=== PATIENT | female | born 1965 | race Caucasian/White ===

== ENCOUNTER → 2020-09-25 15:24 | Outpatient (BNVA) | payer BC, SELFPAY | PROVIDERS: PCP Internal Medicine; Referring Provider Internal Medicine; Visit Provider Internal Medicine Endocrinology, Diabetes & Metabolism | DX: Z13.89 Encounter for screening for other disorder (principal) ==

== ENCOUNTER 2020-11-13 14:28 | Outpatient (REF) | payer OTHER, SELFPAY ==
[2020-11-13 15:00] LABS: COVID-19 Test Negative (Negative); IDNOW Serial# 55D5AD1C
== END 2020-11-13 14:29 | disposition home or self-care (01) ==
LOC: HO.LAB 14:28
PROVIDERS: PCP Internal Medicine; Visit Provider Internal Medicine
DX: Z20.828 Contact with and (suspected) exposure to other viral communicable diseases (principal)
CPT/HCPCS: 87635; C9803

== ENCOUNTER 2020-11-28 07:21 | Outpatient (REF) | payer OTHER, SELFPAY ==
[2020-11-28 07:46] LABS: COVID-19 Test Negative (Negative); IDNOW Serial# 55D5AD1C
== END 2020-11-28 07:22 | disposition home or self-care (01) ==
LOC: HO.EMPCOV 07:21
PROVIDERS: Visit Provider Internal Medicine
DX: Z20.828 Contact with and (suspected) exposure to other viral communicable diseases (principal)
CPT/HCPCS: 36415; 87635; C9803

== ENCOUNTER 2021-02-28 12:13 | Outpatient (REF) | payer OTHER, SELFPAY ==
[2021-02-28 12:50] LABS: COVID-19 Test Negative (Negative)
== END 2021-02-28 12:14 | disposition home or self-care (01) ==
LOC: HO.EMPCOV 12:13
PROVIDERS: Visit Provider Internal Medicine
DX: Z20.822 Contact with and (suspected) exposure to COVID-19 (principal)
CPT/HCPCS: 36415; 87635; C9803

== ENCOUNTER 2021-05-08 09:31 | Outpatient (REF) | payer BC, SELFPAY ==
[2021-05-08 11:58] LABS: Alanine Aminotransferase 33 U/L (0-31); Albumin Level 4.4 g/dL (3.5-5.0); Alkaline Phosphatase 69 U/L (39-117); Anion Gap 12 (12-20); Aspartate Amino Transferase 23 U/L (5-31); Blood Urea Nitrogen 11 mg/dL (9-16); Calcium 10.2 mg/dL (8.4-10.2); Carbon Dioxide 27 mmol/L (22-29); Chloride 106 mmol/L (96-108); Cholesterol 161 mg/dL; Estimated Glomerular Filt Rate > 60; Glucose Fasting 82 mg/dL (60-99); HDL Cholesterol 50 mg/dL; LDL Cholesterol Calculated 73 mg/dl; Potassium 4.4 mmol/L (3.3-5.1); Sodium 141 mmol/L (135-145); Total Protein 7.3 g/dL (6.5-8.0); Triglycerides 194 mg/dL
[2021-05-08 12:22] LABS: Free T4 (Free Thyroxine) 0.88 ng/dL (0.71-1.85); Thyroid Stimulating Hormone 1.66 uIU/mL (0.32-4.0); Vitamin D 25-OH Total 43.4 ng/mL (>30)
[2021-05-09 06:31] LABS: LDL Cholesterol Direct 87 mg/dL (<100)
== END 2021-05-08 09:32 | disposition home or self-care (01) ==
LOC: HO.HMGCLDS 09:31
PROVIDERS: PCP Internal Medicine; Visit Provider Internal Medicine Endocrinology, Diabetes & Metabolism
DX: I10 Essential (primary) hypertension (principal); E78.5 Hyperlipidemia, unspecified; E04.2 Nontoxic multinodular goiter; E55.9 Vitamin D deficiency, unspecified
CPT/HCPCS: 36415; 80053; 80061; 82306; 83721; 84439; 84443

== ENCOUNTER 2021-05-09 11:11 | Outpatient (REF) | payer BC, SELFPAY ==
--- NOTE | ~2021-05-09 | US_ITS ---
EXAMINATION: US THYROID CLINICAL INFORMATION: Nontoxic multinodular goiter. COMPARISON: Ultrasound soft tissue head/neck thyroid dated 12/15/2019 and 10/28/2016. TECHNIQUE: Linear transducer grayscale and color Doppler examination with attention to the region of the thyroid. FINDINGS: SIZE: Measurements of the thyroid lobes and nodules are given in sagittal, anteroposterior and transverse dimensions respectively. Right Thyroid Lobe: 5.5 x 1.7 x 1.8 cm, volume 8.6 mL. Previously 4.9 x 1.8 x 2.2 cm, volume 9.6 mL. Parenchyma: The gland echotexture is homogeneous. Thyroid vascularity is increased. Left Thyroid Lobe: 5.6 x 2.0 x 1.9 cm, volume 11.0 mL. Previously 4.5 x 2.2 x 1.9 cm, volume 9.6 mL. Parenchyma: The gland echotexture is homogeneous. Thyroid vascularity is increased. Isthmus: 0.4 cm in maximum AP dimension. Previously 0.2 cm. Estimated total number of nodules greater than or equal to 1 cm: 2. Manager Asset nodules are described as follows: 1. Location: Right superior. Size: 0.84 x 0.8 x 1.1 cm, volume 0.39 mL. Previously: 0.9 x 0.9 x 1.1 cm, volume 0.47 mL. Nodule characteristics: Composition: Solid (2). Echogenicity: Hyperechoic (1). Shape: Not taller than wide (0). Margins: Smooth (0). Echogenic Foci: None (0). ACR TI-RADS total points: 3 ACR TI-RADS category: 3 Significant change in size (>/= 20% in 2 dimensions and minimal increase of 2 mm or 50% or greater increase in volume): No Change in features: No Change in ACR TI-RADS risk category: No 2. Location: Right mid. Size: 0.65 x 0.32 x 0.51 cm, volume 0.06 mL. Previously: 0.51 x 0.29 x 0.56 cm, volume 0.03 mL. Nodule characteristics: Composition: Spongiform (0). Echogenicity: Anechoic (0). Shape: Not taller than wide (0). Margins: Smooth (0). Echogenic Foci: None (0). ACR TI-RADS total points: 0 ACR TI-RADS category: 1 Significant change in size (>/= 20% in 2 dimensions and minimal increase of 2 mm or 50% or greater increase in volume): Yes Change in features: No Change in ACR TI-RADS risk category: No 3. Location: Left mid. Size: 0.31 x 0.3 x 0.32 cm, volume 0.02 mL. Previously: Not documented on the prior study. Nodule characteristics: Composition: Cystic(0). ACR TI-RADS total points: 0 ACR TI-RADS category: 1 4. Location: Left inferior. Size: 1.1 x 0.6 x 0.88 cm, volume 0.3 mL. Previously: 0.8 x 0.52 x 0.95 cm, volume 0.21 mL. Nodule characteristics: Composition: Solid (2). Echogenicity: Isoechoic (1). Shape: Not taller than wide (0). Margins: Smooth (0). Echogenic Foci: None (0). ACR TI-RADS total points: 3 ACR TI-RADS category: 3 Significant change in size (>/= 20% in 2 dimensions and minimal increase of 2 mm or 50% or greater increase in volume): No Change in features: No Change in ACR TI-RADS risk category: No NODES: No lymphadenopathy is seen in the tissue surrounding the thyroid gland. US/US thyroid IMPRESSION: Slightly enlarged thyroid gland with bilateral thyroid nodules. Slight interval increase in size in the nodule in the right lobe otherwise no appreciable change from previous exam November 2019.. ACR TI-RADS RECOMMENDATION REFERENCE: Ultrasound-guided fine-needle aspiration, followup ultrasound, no further follow up. * TR1 (0 point) and TR 2 (2 points): No FNA or follow up * TR3 (3 points): FNA if more than or equal to 2.5 cm in maximum dimension, followup ultrasound in 1, 3 and 5 years if 1.5 to 2.4 cm in maximum dimension. * TR4 (4-6 points): FNA if more than or equal to 1.5 cm in maximum dimension, followup ultrasound in 1, 2, 3 and 5 years if 1 to 1.4 cm in maximum dimension. * TR5 (more than or equal to 7 points): FNA if more than or equal to 1 cm in maximum dimension, followup ultrasound every year for 5 years if 0.5 to 0.9 cm in maximum dimension. * TR3, TR4 or TR5 nodules that are below the size threshold for follow up receive no follow up.
== END 2021-05-09 11:12 | disposition home or self-care (01) ==
LOC: HO.HMGCX 11:11
PROVIDERS: PCP Internal Medicine; Visit Provider Internal Medicine Endocrinology, Diabetes & Metabolism
DX: E04.2 Nontoxic multinodular goiter (principal)
CPT/HCPCS: 76536

== ENCOUNTER → 2021-05-10 08:12 | Outpatient (BNVA) | payer BC, SELFPAY | PROVIDERS: PCP Internal Medicine; Visit Provider Internal Medicine Endocrinology, Diabetes & Metabolism ==

== ENCOUNTER 2022-07-07 08:20 | Outpatient (REF) | payer BC, SELFPAY ==
[2022-07-07 11:55] LABS: Estimated Average Glucose 100 mg/dL; Hemoglobin A1c % 5.1 %
[2022-07-07 12:16] LABS: Alanine Aminotransferase 29 U/L (0-31); Albumin Level 4.3 g/dL (3.5-5.0); Alkaline Phosphatase 65 U/L (39-117); Anion Gap 14 (12-20); Aspartate Amino Transferase 19 U/L (5-31); Bilirubin Total 0.5 mg/dL (0.0-1.0); Blood Urea Nitrogen 11 mg/dL (9-16); Calcium 9.6 mg/dL (8.4-10.2); Carbon Dioxide 24 mmol/L (22-29); Chloride 107 mmol/L (96-108); Cholesterol 189 mg/dL; Estimated Glomerular Filt Rate > 60; Glucose Random 99 mg/dL (60-115); HDL Cholesterol 52 mg/dL; LDL Cholesterol Calculated 113 mg/dl; Potassium 4.2 mmol/L (3.3-5.1); Sodium 141 mmol/L (135-145); Total Protein 7.3 g/dL (6.5-8.0); Triglycerides 122 mg/dL
[2022-07-07 12:22] LABS: Free T4 (Free Thyroxine) 0.91 ng/dL (0.71-1.85); Thyroid Stimulating Hormone 3.21 uIU/mL (0.32-4.0); Vitamin D 25-OH Total 32.8 ng/mL (>30)
[2022-07-09 07:52] LABS: LDL Cholesterol Direct 115 mg/dL (<100)
== END 2022-07-07 08:21 | disposition home or self-care (01) ==
LOC: HO.HMGCLDS 08:20
PROVIDERS: PCP Internal Medicine; Visit Provider Internal Medicine
DX: I10 Essential (primary) hypertension (principal); E55.9 Vitamin D deficiency, unspecified; E06.3 Autoimmune thyroiditis; E78.5 Hyperlipidemia, unspecified
CPT/HCPCS: 36415; 80053; 80061; 82306; 83036; 83721; 84439; 84443

== ENCOUNTER 2022-12-20 19:52 | Emergency (ER) | payer BC, SELFPAY ==
--- NOTE | ~2022-12-20 | XR_ITS ---
EXAMINATION: XR chest 2V CLINICAL INFORMATION: Reason for Exam chest pain COMPARISON: None TECHNIQUE: 2 views of the chest FINDINGS: Clear lungs. No pneumothorax or pleural effusion. Normal cardiomediastinal silhouette. XR/XR chest 2V IMPRESSION: * Clear lungs.
[2022-12-20 19:53] VITALS: BP 187/104; PULSE 82; RESP 18; TEMP 36.9; O2SAT 97; BMI 29.9
--- NOTE | 2022-12-20 19:55 | ED_ITS ---
HPI - General Adult General Chief complaint: General Medical <AILYN Huggins - Last Filed: 12/20/22 19:57> Stated complaint: High BP <AILYN Huggins - Last Filed: 12/20/22 19:57> Time Seen by Provider: 12/20/22 20:04 <AILYN Huggins - Last Filed: 12/20/22 19:57> Source: patient <Mickey Deutsch MD - Last Filed: 12/26/22 17:43> Mode of arrival: ambulatory <Mickey Deutsch MD - Last Filed: 12/26/22 17:43> Limitations: no limitations <Mickey Deutsch MD - Last Filed: 12/26/22 17:43> History of Present Illness HPI narrative: Patient is a 57 year old female with history of hypertension on lisinopril 20 mg daily noticed to have high blood pressure for last few days today on arrival blood pressure was 179/108 with pulse rate of 69 repeat blood pressure was 149/80. Patient denies any stress no change in the diet no NSAID use no chest pain no headache no palpitation no anxiety or depression <Mickey Deutsch MD - Last Filed: 12/26/22 17:43> Related Data Home medications: Previous Rx's Medication Instructions Recorded cholecalciferol (vitamin D3) 50 50 mcg PO DAILY 30 days #30 caps 05/10/21 mcg (2,000 unit) capsule atorvastatin 20 mg tablet 20 mg PO DAILY 30 days #30 tabs 09/10/22 amlodipine 5 mg tablet 5 mg PO DAILY 30 days #30 tabs 12/22/22 hydrochlorothiazide 25 mg tablet 25 mg PO QAM #30 tabs 12/22/22 lisinopril 20 mg tablet 20 mg PO DAILY 30 days #30 caps 12/22/22 <AILYN Huggins - Last Filed: 12/20/22 19:57> Allergies/adverse reactions: Allergies Allergy/AdvReac Type Severity Reaction Status Date / Time No Known Allergies Allergy Verified 12/20/22 19:57 [No Known Allergies*] <AILYN Huggins - Last Filed: 12/20/22 19:57> Review of Systems Review of Systems: Yes all other systems are reviewed and are negative <Mickey Deutsch MD - Last Filed: 12/26/22 17:43> [facility] [place] Past Medical History Medical History: Medical History CKD (chronic kidney disease) stage 3, GFR 30-59 ml/min Dyslipidemia Julio's disease Hypertension Non-toxic multinodular goiter Vitamin D deficiency <AILYN Huggins - Last Filed: 12/20/22 19:57> Surgical History: Surgical History History of root canal procedure <AILYN Huggins - Last Filed: 12/20/22 19:57> Family History Family History: Family History Father COPD (chronic obstructive pulmonary disease) HTN (hypertension) Elevated cholesterol Mother Colon cancer HTN (hypertension) Elevated lipids Maternal Grandfather Unknown family medical history Maternal Grandmother No problems noted. Paternal Grandfather No problems noted. Paternal Grandmother Oral cancer Smoker Unknown family medical history Maternal Aunt No problems noted. Sister Breast cancer Sister Breast cancer Brother No problems noted. Son No problems noted. Son No problems noted. Daughter No problems noted. Brother No problems noted. Sister No problems noted. <AILYN Huggins - Last Filed: 12/20/22 19:57> Social History Social History: Social History Patient Tobacco Use Status: Never used Tobacco <AILYN Huggins - Last Filed: 12/20/22 19:57> Physical Exam ED Vital Signs: BMI result Body Mass Index 29.9 <AILYN Huggins - Last Filed: 12/20/22 19:57> BMI result Body Mass Index 29.9 <Mickey Deutsch MD - Last Filed: 12/26/22 17:43> Appearance: Alert. Oriented X3. No acute distress. Eyes: No pallor/icterus ENT: Pharynx normal. Oral Mucosa moist Neck: Normal inspection. Neck supple. CVS: Normal heart rate and rhythm. Pulses normal. Respiratory: No respiratory distress. Equal air entry bilateral, no wheezing/rales/rhonchi Abdomen: Soft and nontender. Bowel sounds are present, no mass palpable, no CVA tenderness Skin: Skin warm and dry. Normal skin color. Normal skin turgor. Extremities: No lower extremity edema. No calf tenderness Neuro: Oriented X 3. No motor deficit. No sensory deficit.No cerebellar signs , cranial nerves II-XII intact <Mickey Deutsch MD - Last Filed: 12/26/22 17:43> Course Course Course Narrative: RME performed by Sandrita Rios PA-C. Patient is a 57 year old female presenting to the emergency department with elevated blood pressure. Patient states that she has a history of HTN for which she takes medication but it is still elevated even after her medication today. Labs ordered. Patient placed back in waiting room pending results and room availability. <AILYN Huggins - Last Filed: 12/20/22 19:57> Medical Decision Making Medical Decision Making MDM Narrative: Patient with mild hypertensive blood pressure increased to 153/91 during stay in the ER. Will advise patient to follow with PCP add hydrochlorothiazide 25 mg daily region patient does not have any end-organ damage at this time, labs are stable <Mickey Deutsch MD - Last Filed: 12/26/22 17:43> Lab Data [facility] Lab Attestation statement: I reviewed the patient's lab results. <Mickey Deutsch MD - Last Filed: 12/26/22 17:43> Result Diagrams: 12/20/22 20:28 12/20/22 20:28 <AILYN Huggins - Last Filed: 12/20/22 19:57> Labs: Lab Results 12/20/22 12/20/22 Range/Units 20:28 20:28 WBC 5.4 (4.8-10.8) X10*3/uL RBC 4.46 (4.20-5.50) X10*6/uL Hgb 12.7 (12.0-16.0) g/dl Hct 39.2 (37.0-47.0) % MCV 87.9 (80.0-98.0) fL MCH 28.5 (27.0-33.0) pg MCHC 32.4 (31.0-35.0) g/dl RDW 12.7 (11.0-16.0) % Plt Count 199 (160-400) X10*3/uL MPV 10.0 (9.4-12.3) fL Immature Gran % (Auto) 0.4 (0.0-0.4) % Neut % (Auto) 62.1 (45-73) % Lymph % (Auto) 25.6 (20-40) % Hood % (Auto) 9.3 (2-11) % Eos % (Auto) 2.0 (0-4) % Baso % (Auto) 0.6 (0-2) % Lymph # (Auto) 1.4 (1.2-4.9) X10*3/uL Hood # (Auto) 0.5 (0.1-1.2) X10*3/uL Eos # (Auto) 0.1 (0.0-0.4) X10*3/uL Baso # (Auto) 0.0 (0.0-0.2) X10*3/uL Abs Immat Gran (auto) 0.02 (0.00-0.03) X10*3/uL Absolute Neuts (auto) 3.4 (2.0-8.3) x10*3/uL Absolute Nucleated RBC 0.000 (0.0-0.012) X10*3/uL Nucleated RBC % (auto) 0.0 (0.0-0.2) /100WBC Sodium 142 (135-145) mmol/L Potassium 3.9 (3.3-5.1) mmol/L Chloride 108 (96-108) mmol/L Carbon Dioxide 28 (22-29) mmol/L Anion Gap 10 L (12-20) BUN 20 H (9-16) mg/dL Creatinine 0.99 (0.5-1.4) mg/dL Estim Creat Clear Calc 79.6 Estimated GFR 58 Random Glucose 85 (60-115) mg/dL Calcium 9.5 (8.4-10.2) mg/dL Magnesium 1.9 (1.6-2.6) mg/dL Total Bilirubin 0.4 (0.0-1.0) mg/dL AST 16 (5-31) U/L ALT 20 (0-31) U/L Alkaline Phosphatase 68 (39-117) U/L Total Protein 6.9 (6.5-8.0) g/dL Albumin 4.2 (3.5-5.0) g/dL <AILYN Huggins - Last Filed: 12/20/22 19:57> Lab Results 12/20/22 12/20/22 Range/Units 20:28 20:28 WBC 5.4 (4.8-10.8) X10*3/uL RBC 4.46 (4.20-5.50) X10*6/uL Hgb 12.7 (12.0-16.0) g/dl Hct 39.2 (37.0-47.0) % MCV 87.9 (80.0-98.0) fL MCH 28.5 (27.0-33.0) pg MCHC 32.4 (31.0-35.0) g/dl RDW 12.7 (11.0-16.0) % Plt Count 199 (160-400) X10*3/uL MPV 10.0 (9.4-12.3) fL Immature Gran % (Auto) 0.4 (0.0-0.4) % Neut % (Auto) 62.1 (45-73) % Lymph % (Auto) 25.6 (20-40) % Hood % (Auto) 9.3 (2-11) % Eos % (Auto) 2.0 (0-4) % Baso % (Auto) 0.6 (0-2) % Lymph # (Auto) 1.4 (1.2-4.9) X10*3/uL Hood # (Auto) 0.5 (0.1-1.2) X10*3/uL Eos # (Auto) 0.1 (0.0-0.4) X10*3/uL Baso # (Auto) 0.0 (0.0-0.2) X10*3/uL Abs Immat Gran (auto) 0.02 (0.00-0.03) X10*3/uL Absolute Neuts (auto) 3.4 (2.0-8.3) x10*3/uL Absolute Nucleated RBC 0.000 (0.0-0.012) X10*3/uL Nucleated RBC % (auto) 0.0 (0.0-0.2) /100WBC Sodium 142 (135-145) mmol/L Potassium 3.9 (3.3-5.1) mmol/L Chloride 108 (96-108) mmol/L Carbon Dioxide 28 (22-29) mmol/L Anion Gap 10 L (12-20) BUN 20 H (9-16) mg/dL Creatinine 0.99 (0.5-1.4) mg/dL Estim Creat Clear Calc 79.6 Estimated GFR 58 Random Glucose 85 (60-115) mg/dL Calcium 9.5 (8.4-10.2) mg/dL Magnesium 1.9 (1.6-2.6) mg/dL Total Bilirubin 0.4 (0.0-1.0) mg/dL AST 16 (5-31) U/L ALT 20 (0-31) U/L Alkaline Phosphatase 68 (39-117) U/L Total Protein 6.9 (6.5-8.0) g/dL Albumin 4.2 (3.5-5.0) g/dL <Mickey Deutsch MD - Last Filed: 12/26/22 17:43> Independent Interpretation I performed an independent interpretation of an: EKG <Mickey Deutsch MD - Last Filed: 12/26/22 17:43> Interpretation: Normal sinus rhythm heart rate 70 beats per minute normal interval normal axis no acute ST-T changes impression normal EKG <Mickey Deutsch MD - Last Filed: 12/26/22 17:43> Discharge Plan Discharge Clinical Impression: Hypertension <AILYN Huggins - Last Filed: 12/20/22 19:57> Patient Disposition: Home, Self-Care <AILYN Huggins - Last Filed: 12/20/22 19:57> Instructions: Chronic Hypertension (ED) <AILYN Huggins - Last Filed: 12/20/22 19:57> Additional Instructions: Decrease salt intake Start taking hydrochlorothiazide 25 mg daily along with lisinopril and 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 Check blood pressure twice daily Blood pressure Should be less than 135/85 Report to the ER/PCP blood pressure higher than 160/100 <AILYN Huggins - Last Filed: 12/20/22 19:57> Prescriptions: No Action atorvastatin 20 mg tablet 20 mg PO DAILY 30 Days Qty: 30 4RF lisinopril 20 mg tablet 20 mg PO DAILY 30 Days Qty: 30 6RF hydrochlorothiazide 25 mg tablet 25 mg PO QAM Qty: 30 4RF amlodipine 5 mg tablet 5 mg PO DAILY 30 Days Qty: 30 6RF cholecalciferol (vitamin D3) 50 mcg (2,000 unit) capsule 50 mcg PO DAILY 30 Days Qty: 30 6RF <AILYN Huggins - Last Filed: 12/20/22 19:57> Interventions: ED Discharge Assessment Last Done: 12/20/22 21:54 <AILYN Huggins - Last Filed: 12/20/22 19:57> Discharge Date/Time: 12/20/22 21:55 <AILYN Huggins - Last Filed: 12/20/22 19:57>
--- NOTE | 2022-12-20 19:57 | ECG_ITS ---
Test Reason : htn Blood Pressure : / mmHG Vent. Rate : 070 BPM Atrial Rate : 070 BPM P-R Int : 162 ms QRS Dur : 088 ms QT Int : 434 ms P-R-T Axes : 042 009 032 degrees QTc Int : 468 ms Artifact in tracing Normal sinus rhythm Normal ECG No previous ECGs available Referred By: Sandrita Rios Electronically Signed By:BEAR DOW
[2022-12-20 19:58] VITALS: BP 179/108
--- NOTE | 2022-12-20 20:08 | PC.NURSE ---
pt resting on stretcher at this time, [facility] performing EKG and getting blood work done at this time
[2022-12-20 20:15] VITALS: BP 149/80; PULSE 69; RESP 16; O2SAT 98
[2022-12-20 20:33] LABS: MANUAL DIFF FLAG NO
[2022-12-20 20:38] LABS: Basophils Percent Auto 0.6 % (0-2); Eosinophils Absolute Auto 0.1 X10*3/uL (0.0-0.4); Hematocrit 39.2 % (37.0-47.0); Hemoglobin 12.7 g/dl (12.0-16.0); Imm Gran Abs Auto 0.02 X10*3/uL (0.00-0.03); Imm Gran Pct Auto 0.4 % (0.0-0.4); Lymphocytes Absolute Auto 1.4 X10*3/uL (1.2-4.9); Lymphocytes Percent Auto 25.6 % (20-40); Mean Corpuscular HGB Conc 32.4 g/dl (31.0-35.0); Mean Corpuscular Hemoglobin 28.5 pg (27.0-33.0); Mean Corpuscular Volume 87.9 fL (80.0-98.0); Monocytes Absolute Auto 0.5 X10*3/uL (0.1-1.2); Monocytes Percent Auto 9.3 % (2-11); Neutrophils Absolute Auto 3.4 x10*3/uL (2.0-8.3); Neutrophils Percent Auto 62.1 % (45-73); Platelet Count 199 X10*3/uL (160-400); Red Blood Count 4.46 X10*6/uL (4.20-5.50); Red Cell Distribution Width 12.7 % (11.0-16.0); White Blood Count 5.4 X10*3/uL (4.8-10.8)
[2022-12-20 20:49] LABS: Alanine Aminotransferase 20 U/L (0-31); Albumin Level 4.2 g/dL (3.5-5.0); Alkaline Phosphatase 68 U/L (39-117); Anion Gap 10 (12-20); Aspartate Amino Transferase 16 U/L (5-31); Bilirubin Total 0.4 mg/dL (0.0-1.0); Blood Urea Nitrogen 20 mg/dL (9-16); Calcium 9.5 mg/dL (8.4-10.2); Carbon Dioxide 28 mmol/L (22-29); Chloride 108 mmol/L (96-108); Creatinine Clr Calc Pharmacy 79.6; Estimated Glomerular Filt Rate 58; Glucose Random 85 mg/dL (60-115); Magnesium 1.9 mg/dL (1.6-2.6); Potassium 3.9 mmol/L (3.3-5.1); Sodium 142 mmol/L (135-145); Total Protein 6.9 g/dL (6.5-8.0)
[2022-12-20 21:26] VITALS: BP 153/91; PULSE 67; RESP 14; O2SAT 100
== END 2022-12-20 21:55 | disposition home or self-care (01) ==
PROVIDERS: Physician Assistant Medical; Emergency Provider Internal Medicine; PCP Internal Medicine
DX: I12.9 Hypertensive chronic kidney disease with stage 1 through stage 4 chronic kidney disease, or unspecified chronic kidney disease (principal); N18.9 Chronic kidney disease, unspecified; E78.5 Hyperlipidemia, unspecified; Z79.899 Other long term (current) drug therapy; Z79.02 Long term (current) use of antithrombotics/antiplatelets
CPT/HCPCS: 36415; 71046; 80053; 83735; 85025; 93005; 99283; 99284

== ENCOUNTER 2022-12-23 08:03 | Outpatient (REF) | payer BC, SELFPAY ==
[2022-12-23 12:15] LABS: Alanine Aminotransferase 20 U/L (0-31); Albumin Level 4.5 g/dL (3.5-5.0); Alkaline Phosphatase 67 U/L (39-117); Anion Gap 13 (12-20); Aspartate Amino Transferase 15 U/L (5-31); Bilirubin Total 0.7 mg/dL (0.0-1.0); Blood Urea Nitrogen 17 mg/dL (9-16); Calcium 10.6 mg/dL (8.4-10.2); Carbon Dioxide 27 mmol/L (22-29); Chloride 105 mmol/L (96-108); Cholesterol 174 mg/dL; Estimated Glomerular Filt Rate > 60; Glucose Random 94 mg/dL (60-115); HDL Cholesterol 51 mg/dL; LDL Cholesterol Calculated 102 mg/dl; Potassium 4.2 mmol/L (3.3-5.1); Sodium 141 mmol/L (135-145); Total Protein 7.5 g/dL (6.5-8.0); Triglycerides 106 mg/dL
[2022-12-23 12:38] LABS: Estimated Average Glucose 100 mg/dL; Hemoglobin A1C 178.1198 umol/L; Hemoglobin A1c % 5.1 %
[2022-12-23 12:39] LABS: Free T4 (Free Thyroxine) 0.98 ng/dL (0.71-1.85); Thyroid Stimulating Hormone 2.94 uIU/mL (0.32-4.0)
[2022-12-25 00:09] LABS: LDL Cholesterol Direct 94 mg/dL (<100)
[2022-12-27 12:49] LABS: Renin 1.06 ng/mL/h (0.25-5.82)
== END 2022-12-23 08:04 | disposition home or self-care (01) ==
LOC: HO.HMGCLDS 08:03
PROVIDERS: PCP Internal Medicine; Visit Provider Internal Medicine
DX: I10 Essential (primary) hypertension (principal); E04.2 Nontoxic multinodular goiter
CPT/HCPCS: 36415; 80053; 80061; 82088; 83036; 83721; 84244; 84439; 84443

== ENCOUNTER 2022-12-30 11:44 | Outpatient (REF) | payer BC, SELFPAY ==
--- NOTE | ~2022-12-30 | XR_ITS ---
EXAMINATION: XR LUMBOSACRAL SPINE CLINICAL INFORMATION: Low back pain. COMPARISON: None TECHNIQUE: Three views of the lumbosacral spine. FINDINGS: There is normal lumbar lordosis and spinal alignment. The vertebral bodies are intact. Mild to moderate degenerative disc disease is seen. There is no acute fracture. The soft tissues are unremarkable. XR/XR lumbar spine 2-3V IMPRESSION: Mild to moderate degenerative disc disease at L5-S1. No acute abnormality.
== END 2022-12-30 11:45 | disposition home or self-care (01) ==
LOC: HO.HMGCX 11:44
PROVIDERS: PCP Internal Medicine; Visit Provider Nurse Practitioner Family
DX: M54.50 Low back pain, unspecified (principal)
CPT/HCPCS: 72100

== ENCOUNTER 2024-02-02 09:17 | Outpatient (REF) | payer BC, SELFPAY ==
[2024-02-02 11:50] LABS: Estimated Average Glucose 91 mg/dL; Hemoglobin A1c % 4.8 % (<6.0)
[2024-02-02 12:21] LABS: Cholesterol 166 mg/dL (<200); HDL Cholesterol 50 mg/dL (>40); LDL Cholesterol Calculated 89 mg/dL (<100); Triglycerides 139 mg/dL (<150)
[2024-02-02 12:23] LABS: Thyroid Stimulating Hormone 1.82 uIU/mL (0.32-4.0)
[2024-02-03 12:39] LABS: LDL Cholesterol Direct 103 mg/dL (<100)
== END 2024-02-02 09:18 | disposition home or self-care (01) ==
LOC: HO.HMGCLDS 09:17
PROVIDERS: PCP Nurse Practitioner Primary Care; Visit Provider Internal Medicine
DX: E78.2 Mixed hyperlipidemia (principal); E88.819 Insulin resistance, unspecified; I10 Essential (primary) hypertension; E04.2 Nontoxic multinodular goiter
CPT/HCPCS: 36415; 80061; 83036; 83721; 84443

== ENCOUNTER 2024-02-19 17:46 | Emergency (ER) | payer BC, SELFPAY ==
--- NOTE | ~2024-02-19 | CT_ITS ---
EXAMINATION: CT ABDOMEN AND PELVIS WITH CONTRAST CLINICAL INFORMATION: Left lower quadrant COMPARISON: None available. TECHNIQUE: Multidetector volumetric images were obtained from the superior aspect of the liver through the pubic symphysis following administration 85 mL of Omnipaque 350 intravenous contrast. Sagittal and coronal reformatted images were obtained on the technologist's workstation. Oral contrast: No This CT examination was performed using dose optimization techniques as appropriate, variously including the following: *Automated exposure control *Adjustment of mA and/or kV according to patient size (this includes techniques or standardized protocols for targeted exams where dose is matched to indication/reason for exam; i.e. extremities or head) *Use of iterative reconstruction technique DLP: 739 mGy-cm FINDINGS: LUNG BASES: Bronchial wall thickening is seen., No consolidations, pleural effusions or lung masses. LIVER, GALLBLADDER, AND BILIARY TREE: The liver is enlarged measuring about 20 cm in cephalocaudad dimension with decreased attenuation suggesting hepatic steatosis. No focal hepatic lesion or biliary ductal dilatation is present. The gallbladder is unremarkable with no evidence of radiopaque gallstones, gallbladder wall thickening, or obvious pericholecystic inflammatory changes. PANCREAS: Unremarkable. SPLEEN: Mild splenomegaly measuring 12.6 cm in greatest transverse dimension. ADRENAL GLANDS: Unremarkable. KIDNEYS AND URETERS: The kidneys are normal in size, shape, and attenuation. No hydronephrosis, hydroureter, or calculi seen. No perinephric stranding. BLADDER: Unremarkable. GASTROINTESTINAL TRACT: Colonic diverticular changes are present with an area of acute diverticulitis in the distal sigmoid with marked inflammatory changes in the pericolonic fat. No free air or drainable fluid collections are seen. Small amount of free fluid is present in the cul-de-sac. There may be some adjacent inflammatory change in some small bowel. The remainder of the colon as well as the small bowel and appendix appear normal ABDOMINAL WALL: No significant hernia is appreciated. LYMPH NODES: Small shotty retroperitoneal lymph nodes are present without adenopathy. VASCULAR: Unremarkable. PELVIC VISCERA: The uterus and adnexa are unremarkable. OSSEOUS STRUCTURES: Mild degenerative changes are present in the spine. CT/CT abdomen pelvis w IV con IMPRESSION: 1. Acute uncomplicated sigmoid diverticulitis. No free air or drainable fluid collection. 2. Incidental note made of enlarged fatty liver, mild splenomegaly and degenerative changes in the spine. Fleischner guidelines were followed.
[2024-02-19 18:01] VITALS: BP 145/85; PULSE 109; RESP 18; TEMP 37.9; O2SAT 96; BMI 29.3
--- NOTE | 2024-02-19 18:01 | ED_ITS ---
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 Patient reports starting last night she has had intermittent crampy left lower abdominal pain She states the pain is waxing and waning in intensity but always there She denies any diarrhea, constipation. Denies any blood in the stool Denies any significant nausea or vomiting Patient denies any previous abdominal surgeries. She denies any history of colitis or diverticulitis Patient endorses low-grade fevers The patient felt as though she had a UTI so went to urgent care but reportedly had a negative urinalysis Related Data Previous Rx's Medication Instructions Recorded cholecalciferol (vitamin D3) 50 50 mcg PO DAILY 30 days #30 caps 05/10/21 mcg (2,000 unit) capsule amlodipine 5 mg tablet 5 mg PO DAILY 30 days #30 tabs 12/22/22 hydrochlorothiazide 25 mg tablet 25 mg PO QAM #30 tabs 12/22/22 lisinopril 20 mg tablet 20 mg PO DAILY 30 days #30 caps 12/22/22 cyclobenzaprine 10 mg tablet 10 mg PO TID PRN muscle spasm #14 12/30/22 tabs atorvastatin 20 mg tablet 20 mg PO DAILY 90 days #90 tabs 02/06/23 amoxicillin 875 mg-potassium 1 tab PO Q12H #14 tabs 02/19/24 clavulanate 125 mg tablet Allergies Allergy/AdvReac Type Severity Reaction Status Date / Time No Known Allergies Allergy Verified 12/20/22 19:57 [No Known Allergies*] Review of Systems Constitutional: Denies chills and Reports fever(s) Eyes: Denies blurry vision Denies sore throat Cardiovascular: Denies chest pain and Denies dyspnea Respiratory: Denies cough and Denies dyspnea Gastrointestinal: Reports abdominal pain, Denies hematochezia, Reports GI cramping, Denies diarrhea, Denies loose stools, Denies nausea and Denies vomiting Genitourinary: Denies dysuria Musculoskeletal: Denies back pain Skin/Breast: Denies rash PMFSH Past Medical History Medical History CKD (chronic kidney disease) stage 3, GFR 30-59 ml/min Dyslipidemia Julio's disease Hypertension Non-toxic multinodular goiter Vitamin D deficiency Surgical History History of root canal procedure Family History Family History Father COPD (chronic obstructive pulmonary disease) HTN (hypertension) Elevated cholesterol Mother Colon cancer HTN (hypertension) Elevated lipids Maternal Grandfather Unknown family medical history Maternal Grandmother No problems noted. Paternal Grandfather No problems noted. Paternal Grandmother Oral cancer Smoker Unknown family medical history Maternal Aunt No problems noted. Sister Breast cancer Sister Breast cancer Brother No problems noted. Son No problems noted. Son No problems noted. Daughter No problems noted. Brother No problems noted. Sister No problems noted. Social History Social History Patient Tobacco Use Status: Never used Tobacco Advance Directives: No Advance Directives Information Provided: Yes Physical Exam ED Vital Signs: Vital Signs - 24 hr 02/19/24 18:01 02/19/24 21:31 Temperature 100.2 F 98.2 F Pulse Rate 109 H 85 Respiratory Rate 18 18 Blood Pressure 145/85 H 110/78 Pulse Oximetry 96 95 Oxygen Delivery Method Room Air Room Air BMI result Body Mass Index 29.3 Const General: healthy appearing, comfortable, no acute distress, alert and awake Nutritional Appearance: well nourished Orientation/consciousness: patient oriented x3 HENMT Head: Yes normocephalic and Yes atraumatic Eyes Eyelids: Yes eyelids normal Conjunctivae: conjunctivae normal Sclerae: sclerae normal Corneas: corneas normal Pupils: Equal, round and reactive pupils present EOM: EOMs intact bilaterally Neck Neck: Yes full ROM Resp Effort & Inspection: normal respiratory effort, able to speak in complete sentences and not labored Cardio Rate: regular rate Rhythm: regular rhythm GI Inspection: No distended Palpation (GI): Soft to palpation, not firm, Tenderness to palpation present (GI) in the LLQ, in the RLQ and suprapubicly, Guarding due to palpation present (GI) (Guarding with palpation to the lower abdomen) and not rigid Skin General skin exam: no rashes or lesions noted and elasticity normal Neuro General: patient oriented x3 Cranial nerves: Yes Equal, round and reactive pupils present and Yes Bilaterally intact EOM present Cognition (Neuro): normal cognition Extrem Other: Moving all extremities well without any obvious deformities Course Course Course Narrative: This is an RME: Additional HPI, ROS, PE not included below will be deferred to primary provider. Patient presents emergency department evaluation og mid/LLQ ABD pain described as pressure, with onset of symptoms yesterday. Thought maybe secondary to UTI, which will [facility] urgent care reports that it was negative emergency department for possible diverticulitis. Denies any history of such. Denies constipation, diarrhea, hematochezia, melena. Low-grade temperature 100.2 degrees tachycardic. At this time does not meet SIRS criteria, will obtain lactic acid and blood cultures in addition to serum labs. Reevaluation(s) Reevaluation #1: Discussed patient's results with her including uncomplicated diverticulitis. I recommended treatment with Augmentin b.i.d. x7 days. I also informed the patient that newer studies are suggesting treatment with liquid diet only. If the patient would like to try liquid diet for a day that would be acceptable but I was still prescribed antibiotics and if her pain is unchanged in 24 hours I recommend she starts the antibiotics. She was given return precautions such as fever, intractable abdominal pain or inability to tolerate antibiotics Time: 22:34 Medical Decision Making Medical Decision Making [facility] Narrative: 58-year-old female presents for evaluation of left lower abdominal pain that started yesterday. She is quite tender on exam with guarding and rebound tenderness. Plan for CT scan of the abdomen pelvis as diverticulitis is the most likely diagnosis at this time. Her UA does not appear to show any UTI. Patient denies any nausea or vomiting we will treat with IV fluids and Toradol pending CT scan Differential Diagnosis Differential Diagnoses: The differential diagnosis associated with the presentation includes Abdominal pain Colitis Diverticulitis UTI Obstructive uropathy Intra-abdominal abscess Lab Data [facility] Lab Attestation statement: I reviewed the patient's lab results. Mild leukocytosis to 12.0 K. there is a left shift. No significant anemia. Normal platelet count. Chemistry indices all within normal limits 02/19/24 19:23 02/19/24 19:23 Labs: Lab Results 02/19/24 02/19/24 Range/Units 19:23 19:40 WBC 12.0 H (4.8-10.8) X10*3/uL RBC 4.67 (4.20-5.50) X10*6/uL Hgb 13.6 (12.0-16.0) g/dl Hct 39.8 (37.0-47.0) % MCV 85.2 (80.0-98.0) fL MCH 29.1 (27.0-33.0) pg MCHC 34.2 (31.0-35.0) g/dl RDW 12.7 (11.0-16.0) % Plt Count 200 (160-400) X10*3/uL MPV 9.1 L (9.4-12.3) fL Immature Gran % (Auto) 0.4 (0.0-0.4) % Neut % (Auto) 83.1 H (45-73) % Lymph % (Auto) 10.1 L (20-40) % [place] % (Auto) 6.1 (2-11) % Eos % (Auto) 0.0 (0-4) % Baso % (Auto) 0.3 (0-2) % Lymph # (Auto) 1.2 (1.2-4.9) X10*3/uL [place] # (Auto) 0.7 (0.1-1.2) X10*3/uL Eos # (Auto) 0.0 (0.0-0.4) X10*3/uL Baso # (Auto) 0.0 (0.0-0.2) X10*3/uL Abs Immat Gran (auto) 0.05 H (0.00-0.03) X10*3/uL Absolute Neuts (auto) 10.0 H (2.0-8.3) x10*3/uL Absolute Nucleated RBC 0.000 (0.0-0.012) X10*3/uL Nucleated RBC % (auto) 0.0 (0.0-0.2) /100WBC Sodium 137 (135-145) mmol/L Potassium 3.6 (3.3-5.1) mmol/L Chloride 105 (96-108) mmol/L Carbon Dioxide 24 (22-29) mmol/L Anion Gap 12 (12-20) BUN 10 (9-16) mg/dL Creatinine 1.03 (0.5-1.4) mg/dL Estim Creat Clear Calc 74.8 Estimated GFR 55 Random Glucose 115 (60-115) mg/dL Lactic Acid 0.7 (0.5-2.0) mmol/L Calcium 10.0 (8.4-10.2) mg/dL Total Bilirubin 0.9 (0.0-1.0) mg/dL AST 14 (5-31) U/L ALT 19 (0-31) U/L Alkaline Phosphatase 63 (39-117) U/L Total Protein 7.9 (6.5-8.0) g/dL Albumin 4.2 (3.5-5.0) g/dL Lipase 14 (8-78) U/L Urine Color Dark Yellow Urine Appearance Clear Urine pH 6.5 (5.0-9.0) Ur Specific [place] >= 1.030 H (1.005-1.025) Urine Protein 30 (1+) H (Neg-Trace) mg/dL Urine Glucose (UA) Negative (Negative) mg/dL Urine Ketones Trace (Negative) mg/dL Urine Blood Negative (Negative) Urine Nitrite Negative (Negative) Ur Leukocyte Esterase Negative (Negative) Urine RBC 0-2 (0-2) /HPF Urine WBC 0-5 (0-5) /HPF Ur Squamous Epith Cells 0-2 (0-2) /HPF Urine Bacteria None Seen (None Seen) Hyaline Casts 0-2 (0-2) /LPF Independent Interpretation I performed an independent interpretation of an: CT Scan (Mild sigmoid diverticulitis) Radiology Impression Discussion of test interpretation with radiology: I have reviewed the radiologist's reading. (Uncomplicated sigmoid diverticulitis) Medications Administered Discontinued Medications Generic Name Dose Route Start Last Admin Trade Name Freq PRN Reason Stop Dose Admin Acetaminophen 975 mg 02/19/24 18:05 02/19/24 18:07 Acetaminophen 325 Mg Tablet PO 02/19/24 18:06 975 mg ONCE ONE Administration Sodium Chloride 1,000 mls @ 999 mls/hr 02/19/24 21:00 02/19/24 21:01 Ns IV 02/19/24 22:00 999 mls/hr .Q1H1M GUDELIA Administration Iohexol 85 ml 02/19/24 21:23 02/19/24 21:24 Iohexol 350 Mg/Ml 100 Ml Infus..Btl IV 02/19/24 21:24 85 ml ONCE ONE Administration Ketorolac Tromethamine 30 mg 02/19/24 20:47 02/19/24 21:03 Ketorolac Tromethamine 30 Mg/Ml Vial IVPUSH 02/19/24 20:48 30 mg ONCE ONE Administration Discharge Plan Discharge Clinical Impression: Diverticulitis Patient Disposition: Home, Self-Care Instructions: Diverticulitis (ED) Additional Instructions: Your CT scan showed uncomplicated diverticulitis. You may try a liquid diet tomorrow to see if your symptoms improve If you have no improvement you may start Augmentin twice daily for the next week Return for new or worsening symptoms, especially severe/worsening abdominal pain, fevers or inability tolerate the antibiotic Prescriptions: New amoxicillin-pot clavulanate 875-125 mg tablet 1 tab PO Q12H Qty: 14 0RF No Action lisinopril 20 mg tablet 20 mg PO DAILY 30 Days Qty: 30 6RF hydrochlorothiazide 25 mg tablet 25 mg PO QAM Qty: 30 4RF amlodipine 5 mg tablet 5 mg PO DAILY 30 Days Qty: 30 6RF atorvastatin 20 mg tablet 20 mg PO DAILY 90 Days Qty: 90 1RF cyclobenzaprine 10 mg tablet 10 mg PO TID PRN (Reason: muscle spasm) Qty: 14 0RF cholecalciferol (vitamin D3) 50 mcg (2,000 unit) capsule 50 mcg PO DAILY 30 Days Qty: 30 6RF
[2024-02-19] MEDS: Acetaminophen 325 MG TABLET 975 MG PO (18:07)
[2024-02-19 19:29] LABS: MANUAL DIFF FLAG NO
[2024-02-19 19:39] LABS: Lactic Acid 0.7 mmol/L (0.5-2.0)
[2024-02-19 19:40] LABS: Basophils Percent Auto 0.3 % (0-2); Hematocrit 39.8 % (37.0-47.0); Hemoglobin 13.6 g/dl (12.0-16.0); Imm Gran Abs Auto 0.05 X10*3/uL (0.00-0.03); Imm Gran Pct Auto 0.4 % (0.0-0.4); Lymphocytes Absolute Auto 1.2 X10*3/uL (1.2-4.9); Lymphocytes Percent Auto 10.1 % (20-40); Mean Corpuscular HGB Conc 34.2 g/dl (31.0-35.0); Mean Corpuscular Hemoglobin 29.1 pg (27.0-33.0); Mean Corpuscular Volume 85.2 fL (80.0-98.0); Mean Platelet Volume 9.1 fL (9.4-12.3); Monocytes Absolute Auto 0.7 X10*3/uL (0.1-1.2); Monocytes Percent Auto 6.1 % (2-11); Neutrophils Percent Auto 83.1 % (45-73); Platelet Count 200 X10*3/uL (160-400); Red Blood Count 4.67 X10*6/uL (4.20-5.50); Red Cell Distribution Width 12.7 % (11.0-16.0)
[2024-02-19 19:43] LABS: Alanine Aminotransferase 19 U/L (0-31); Albumin Level 4.2 g/dL (3.5-5.0); Alkaline Phosphatase 63 U/L (39-117); Anion Gap 12 (12-20); Aspartate Amino Transferase 14 U/L (5-31); Bilirubin Total 0.9 mg/dL (0.0-1.0); Blood Urea Nitrogen 10 mg/dL (9-16); Carbon Dioxide 24 mmol/L (22-29); Chloride 105 mmol/L (96-108); Creatinine Clr Calc Pharmacy 74.8; Estimated Glomerular Filt Rate 55; Glucose Random 115 mg/dL (60-115); Lipase 14 U/L (8-78); Potassium 3.6 mmol/L (3.3-5.1); Sodium 137 mmol/L (135-145); Total Protein 7.9 g/dL (6.5-8.0)
[2024-02-19 20:07] LABS: Appearance Urine Clear; Color Urine Dark Yellow; Glucose Urine UA Negative (Negative); Leukocyte Esterase Urine Negative (Negative); Nitrite Urine Negative (Negative); PH 6.5 (5.0-9.0); Specific Gravity - Urine >= 1.030 (1.005-1.025); UMIC TRIGGER UACC YES; Urine Blood Negative (Negative); Urine Ketones Trace mg/dL (Negative); Urine Protein 30 (1+) mg/dL (Neg-Trace)
[2024-02-19 20:21] LABS: Bacteria Urine None Seen (None Seen); Hyaline Casts Urine 0-2 /LPF (0-2); Squamous Epithelial Cell Urine 0-2 /HPF (0-2); WBC Urine 0-5 /HPF (0-5)
[2024-02-19 20:24] LABS: RBC Urine 0-2 /HPF (0-2)
[2024-02-19] MEDS: 0.9 % Sodium Chloride 1,000 ML 999 ML IV (21:01)
[2024-02-19] MEDS: Ketorolac Tromethamine 30 MG/ML VIAL IVPUSH (21:03)
[2024-02-19] MEDS: iohexoL 350 MG/ML 100 ML INFUS..BTL 85 ML IV (21:24)
[2024-02-19 21:31] VITALS: BP 110/78; PULSE 85; RESP 18; TEMP 36.8; O2SAT 95
[2024-02-19 22:48] VITALS: BP 133/84; PULSE 83; RESP 15; TEMP 37.2; O2SAT 97
== END 2024-02-19 22:50 | disposition home or self-care (01) ==
PROVIDERS: Nurse Practitioner Family; Emergency Provider Internal Medicine; PCP Nurse Practitioner Primary Care
DX: K57.32 Diverticulitis of large intestine without perforation or abscess without bleeding (principal); R10.32 Left lower quadrant pain; R25.2 Cramp and spasm; R11.2 Nausea with vomiting, unspecified; Z79.899 Other long term (current) drug therapy
CPT/HCPCS: 36415; 74177; 80053; 81001; 81003; 83605; 83690; 85025; 87040; 96361; 96374; 99283; 99284; J1885; Q9967

== ENCOUNTER 2024-10-03 08:02 | Outpatient (REF) | payer BC, SELFPAY ==
[2024-10-03 10:43] LABS: Alanine Aminotransferase 41 U/L (0-31); Albumin Level 4.3 g/dL (3.5-5.0); Alkaline Phosphatase 64 U/L (39-117); Anion Gap 11 (12-20); Aspartate Amino Transferase 28 U/L (5-31); Bilirubin Total 0.4 mg/dL (0.0-1.0); Blood Urea Nitrogen 16 mg/dL (9-16); Calcium 10.1 mg/dL (8.4-10.2); Carbon Dioxide 26 mmol/L (22-29); Chloride 109 mmol/L (96-108); Cholesterol 177 mg/dL (<200); Estimated Glomerular Filt Rate > 60; Glucose Random 99 mg/dL (60-115); HDL Cholesterol 46 mg/dL (>40); LDL Cholesterol Calculated 106 mg/dL (<100); Potassium 4.1 mmol/L (3.3-5.1); Sodium 142 mmol/L (135-145); Total Protein 7.7 g/dL (6.5-8.0); Triglycerides 125 mg/dL (<150)
[2024-10-04 20:17] LABS: LDL Cholesterol Direct 115 mg/dL (<100)
== END 2024-10-03 08:03 | disposition home or self-care (01) ==
LOC: HO.HMGCLDS 08:02
PROVIDERS: PCP Nurse Practitioner Primary Care; Visit Provider Internal Medicine
DX: I10 Essential (primary) hypertension (principal)
CPT/HCPCS: 36415; 80053; 80061; 83721

== ENCOUNTER 2024-12-30 08:14 | Outpatient (REF) | payer BC, SELFPAY ==
[2024-12-30 10:52] LABS: Estimated Average Glucose 100 mg/dL; Hemoglobin A1C 114.8308 umol/L; Hemoglobin A1c % 5.1 % (<6.0); Total Hemoglobin (HGBA1C) 3569.9963 umol/L
[2024-12-30 11:22] LABS: Alanine Aminotransferase 26 U/L (0-31); Albumin Level 4.4 g/dL (3.5-5.0); Alkaline Phosphatase 60 U/L (39-117); Anion Gap 9 (12-20); Aspartate Amino Transferase 23 U/L (5-31); Bilirubin Total 0.6 mg/dL (0.0-1.0); Blood Urea Nitrogen 14 mg/dL (9-16); Calcium 10.3 mg/dL (8.4-10.2); Carbon Dioxide 27 mmol/L (22-29); Chloride 106 mmol/L (96-108); Cholesterol 162 mg/dL (<200); Estimated Glomerular Filt Rate > 60; Glucose Fasting 73 mg/dL (60-99); HDL Cholesterol 45 mg/dL (>40); LDL Cholesterol Calculated 93 mg/dL (<100); Potassium 3.9 mmol/L (3.3-5.1); Sodium 138 mmol/L (135-145); Total Protein 7.9 g/dL (6.5-8.0); Triglycerides 122 mg/dL (<150)
[2024-12-31 08:14] LABS: LDL Cholesterol Direct 93 mg/dL (<100)
== END 2024-12-30 08:15 | disposition home or self-care (01) ==
LOC: HO.HMGCLDS 08:14
PROVIDERS: PCP Nurse Practitioner Primary Care; Visit Provider Internal Medicine
DX: I10 Essential (primary) hypertension (principal); Z13.1 Encounter for screening for diabetes mellitus
CPT/HCPCS: 36415; 80053; 80061; 83036; 83721

== ENCOUNTER 2025-01-12 11:10 | Outpatient (REF) | payer BC, SELFPAY ==
[2025-01-12 14:03] LABS: Influenza A PCR POSITIVE (Negative); Influenza B PCR NEGATIVE (Negative); Resp Syncy Virus RNA Qual PCR NEGATIVE (Negative); SARS COV2 PCR INHOUSE NEGATIVE (Negative)
== END 2025-01-12 11:11 | disposition home or self-care (01) ==
LOC: HO.LAB 11:10
PROVIDERS: PCP Nurse Practitioner Primary Care; Visit Provider Physician Assistant
DX: J22 Unspecified acute lower respiratory infection (principal); J98.8 Other specified respiratory disorders; B97.89 Other viral agents as the cause of diseases classified elsewhere
CPT/HCPCS: 0241U

== ENCOUNTER 2025-01-12 11:10 | Outpatient (AMB) | payer BC, SELFPAY ==
--- NOTE | 2025-01-12 11:15 | AM.OFFWIN_ITS ---
Intake Vital Signs 01/12/25 11:17 Weight 214 lb BP 112/70 Blood Pressure Location Rt brachial Position Sitting Pulse 81 Pulse Source Pulse Oximeter Temp 98.9 F Temp Source Oral Pulse Oximetry (%) 100 Oxygen Delivery Method Room Air Intake Visit Reasons: PE Cough, pain in upper back(Sonya) (lab 7278) Intake Note: Patient here for cough, green mucus, fever on and off and pain in middle of back between shoulder blades since thursday. Patient Tobacco Use Status: Never used Tobacco Allergies No Known Allergies [No Known Allergies*] Allergy (Verified 01/12/25 11:18) Do you need a note to return to daycare/school/sports/work: No HPI HPI Comments History of Present Illness Details History - The patient is a 59-year-old female pr esenting with flu-like symptoms and a persistent cough. - Symptoms were initiated 5 days ago and have been continuous. - Patient experiences fever ranging up t o 101?F, relieved transiently by Ty lenol. - A productive, severe cough with green phlegm is noted. - Reports pain between shoulder blades, potentially due to frequent coughing episodes. - Denies shortness of breath, wheezing, and significant head pain. - No prior vaccinations for influenza fo r the current season have been received. - Currently manages symptoms with over-t he-counter Tylenol and Tylenol PM for night-time discomfort and sleep aid. Physical Exam General: Cooperative, healthy appearing, comfortable and no acute distress Orientation/consciousness: Patient oriented x3 Limitations: No limitations Head: Normal to inspection Ears: Hearing grossly normal bilaterally, external ears normal and TM's normal bilaterally Nose: Normal external nose present, Normal nares present and No nasal discharge present Face and sinus: Normal facial exam and Yes sinuses nontender Mouth: Normal oral and palatal mucosa present and moist mucous membranes Throat: Yes tonsils normal, Yes uvula midline. Posterior oropharynx erythema Eyes: Appearance normal, both eyes and all related structures Neck: Normal visual inspection Respiratory: Clear to auscultation bilaterally. Normal respiratory effort, able to speak in complete sentences, Actively coughing, no respiratory distress, not tachypneic, no tripod positioning and no use of accessory muscles Cardiovascular: Regular rate and rhythm. Normal S1 and S2 Skin: No rashes or lesions noted Neuro: Patient oriented x3 Extremities: Normal to inspection and Yes no clubbing, cyanosis or edema [facility] Medical History CKD (chronic kidney disease) stage 3, GFR 30-59 ml/min Dyslipidemia Julio's disease Hypertension Non-toxic multinodular goiter Vitamin D deficiency Surgical History History of root canal procedure Family History Father COPD (chronic obstructive pulmonary disease) HTN (hypertension) Elevated cholesterol Mother Colon cancer HTN (hypertension) Elevated lipids Maternal Grandfather Unknown family medical history Maternal Grandmother No problems noted. Paternal Grandfather No problems noted. Paternal Grandmother Oral cancer Smoker Unknown family medical history Maternal Aunt No problems noted. Sister Breast cancer Sister Breast cancer Brother No problems noted. Son No problems noted. Son No problems noted. Daughter No problems noted. Brother No problems noted. Sister No problems noted. Social History Patient Tobacco Use Status: Never used Tobacco Review of Systems Const All systems reviewed & are unremarkable except as noted in HPI and below Physical Exam Vital Signs: Last Vital Signs Temp 98.9 F 01/12/25 11:17 Pulse 81 01/12/25 11:17 BP 112/70 01/12/25 11:17 Pulse Ox 95 01/12/25 11:17 Oxygen Delivery Method Room Air 01/12/25 11:17 Assessment & Plan Assessment & Plan (1) Viral respiratory infection: Code(s): J98.8 - Other specified respiratory disorders; B97.89 - Other viral agents as the cause of diseases classified elsewhere Plan: The primary concern for the patient is suspected influenza, characterized by fever, cough, and systemic symptoms. Testing via flu swab was planned to establish a definitive diagnosis. Due to the clear auscultations from the lung examination and satisfactory oxygen saturation, a chest x-ray was not pursued. Symptomatic management with Tylenol is advised to alleviate fever and facilitate sleep. As the current symptomatic regimen proves effective, additional antitussive prescriptions were unnecessary. The patient is instructed to seek further medical attention if symptoms escalate or new signs develop. Patient was informed and verbally consented to the use of an ambient scribe for clinic note documentation during this visit Orders: Orders XR chest 2V Today R05.9 - Cough, unspecified SARS-CoV2/FLU/RSV Today J22 - Unspecified acute lower respiratory infection Coding Level of Care Code New Pt Level 3 (31411) Diagnoses Viral respiratory infection J98.8; B97.89
[2025-01-12 11:17] VITALS: BP 112/70; PULSE 81; TEMP 37.2; O2SAT 100
== END 2025-01-12 12:02 | disposition home or self-care (01) ==
PROVIDERS: PCP Nurse Practitioner Primary Care; Visit Provider Physician Assistant
DX: J98.8 Other specified respiratory disorders (principal); B97.89 Other viral agents as the cause of diseases classified elsewhere

== ENCOUNTER 2025-05-05 11:14 | Outpatient (REF) | payer BC, SELFPAY ==
--- NOTE | ~2025-05-05 | CT_ITS ---
EXAMINATION: CT ABDOMEN PELVIS WITH IV CONTRAST HISTORY: LLQ PAIN COMPARISON: Comparison is made with the prior examination dated the 2923. TECHNIQUE: CT scan of the abdomen and pelvis was performed following administration of 85 mL Omnipaque 350 using standard departmental protocol. Coronal and sagittal reformatted images were generated and reviewed. The patient received oral contrast material. This CT exam was performed with one or more of the following dose reduction techniques: automated exposure control, adjustment of the mA and/or kV according to patient size, use of iterative reconstruction technique. DLP: 635 mGy-cm FINDINGS: LOWER CHEST: There is mild dependent atelectasis bilaterally. The visualized lung bases are otherwise clear. There is no pleural effusion. CARDIOVASCULATURE: The heart is normal in size. There is no pericardial effusion. LIVER: The liver is normal in size and contour. No liver mass is identified. The hepatic and portal veins are patent. GALLBLADDER / BILE DUCTS: The gallbladder is unremarkable. There is no intra or extrahepatic biliary ductal dilatation. SPLEEN: The spleen is normal in size. No focal splenic lesion is identified. PANCREAS: The pancreas is unremarkable in appearance. ADRENAL GLANDS: Within normal limits. KIDNEYS/RETROPERITONEUM: No renal calculi are identified. There is no hydronephrosis. No renal masses are identified. LYMPH NODES: No abdominal or pelvic lymphadenopathy. VASCULATURE: The abdominal aorta is normal in caliber. MESENTERY/PERITONEUM: No free fluid. No masses. There is no free intraperitoneal gas. STOMACH: The stomach is unremarkable. SMALL BOWEL: The small bowel is normal in caliber. COLON: There is diverticulosis of the sigmoid colon. There is moderate wall thickening and pericolonic inflammatory stranding of the sigmoid colon, consistent with diverticulitis. There is no associated extraluminal gas or loculated fluid collection. APPENDIX: Normal. URINARY BLADDER/PELVIC ORGANS: The urinary bladder is collapsed, limiting evaluation. The uterus and ovaries are unremarkable. BONES / SOFT TISSUES: No suspicious bony or soft tissue abnormalities. CT/CT abdomen pelvis w IV con IMPRESSION: Acute uncomplicated diverticulitis of the sigmoid colon as described. Electronically signed by: Dillon Rahman MD 05/05/2025 01:50 PM EDT
[2025-05-05] MEDS: Barium Sulfate Oral (Vanilla) 450 ML ORAL.SUSP 900 ML PO (13:40)
[2025-05-05] MEDS: iohexoL 350 MG/ML 100 ML INFUS..BTL 85 ML IV (13:41)
[2025-05-05 13:47] LABS: Creatinine POC 0.9 mg/dL (0.5-1.4); GFR POC > 60
== END 2025-05-05 11:15 | disposition home or self-care (01) ==
LOC: HO.CT 11:14
PROVIDERS: PCP Nurse Practitioner Primary Care; Visit Provider Nurse Practitioner Primary Care
DX: K57.92 Diverticulitis of intestine, part unspecified, without perforation or abscess without bleeding (principal); R10.32 Left lower quadrant pain
CPT/HCPCS: 74177; 82565; Q9967

== ENCOUNTER → 2025-05-05 11:15 | Outpatient (BNV) | payer BC, SELFPAY | PROVIDERS: PCP Nurse Practitioner Primary Care; Visit Provider Radiology Diagnostic Radiology | DX: K57.32 Diverticulitis of large intestine without perforation or abscess without bleeding (principal) | CPT/HCPCS: 74177 ==